=== PATIENT | female | born 1960 | race Caucasian/White ===

== ENCOUNTER 2024-01-24 21:01 | Inpatient (IN) | payer BC, MEDICARE, SELFPAY ==
[2024-01-24] VITALS (13 sets, daily range): BP systolic 135–204; BP diastolic 75–109; BMI 25.2; BMI 26.1
--- NOTE | 2024-01-24 16:46 | ED.GENMED ---
History of Present Illness
General
Chief Complaint: Chest Pain
Source: patient
Time Seen by Provider: 01/24/24 16:25
Travel History
Have you had any contact with someone who has COVID-19?: No
Do you have any symptoms of coronavirus? Fever > 100 degrees, chills, cough, shortness of breath, sore throat, loss of taste or smell, muscle aches, or headache?: No
History of Present Illness
History of Present Illness:
63-year-old female with past medical history of hypertension presenting the emergency department for evaluation of a multitude of symptoms including starting to feel generally unwell this morning having multiple episodes of loose stool and then
watery diarrhea which is since resolved but symptoms then progressed to nausea without any vomiting at home (patient had 1 episode of nonbloody nonbilious emesis while in the waiting room), chest pressure, chills and generalized fatigue. No known
sick contacts, recent travel or recent antibiotics. Patient is unaware of any fevers. Patient states her biggest concern with her chest pain was her significant family history noting parents with cardiac disease as well as sister. Patient states
she has a follow-up with her calculation reviewer already scheduled for Sunday which was already planned as part of her usual 6-month follow-up. She states despite her hypertension here she is readily compliant with her medications. She did have her HCTZ
prescription increase in July due to her hypertension.
Past History
Past History
ED Past Medical History: HTN
ED Past Surgical History: None
Social History
Tobacco: Non-smoker
Alcohol: Occasional
Drug: None
Personal:
Living: with family
Review of Systems
Review of Systems
All Other Systems: ROS reviewed and negative except as documented in HPI and ROS
Phy Exam
Physical Exam
Physical Exam:
GENERAL: Alert , in no apparent distress
Head: Normocephalic atraumatic
EYE: conjunctiva clear
NECK: Supple
ENT: o/p clr, mmm.
CARDIAC: Regular rate and rhythm, no murmur
LUNGS: Clear breath sounds bilaterally, no acute respiratory distress, no wheezes/rales/rhonchi
NEUROLOGICAL: Alert and oriented x 3, moves all extremities, ambulates with steady gait
SKIN: Warm and dry, skin intact.
MUSCULOSKELETAL: well perfused.
PSYCH: Normal and appropriate interaction.
Scores
Heart Failure Risk
Heart Failure Risk Score: Not Applicable
Heart Score for Chest Pain Patients
STEMI patient?: Not applicable
Withdrawal Assessment of Alcohol
Withdrawal Assessment Completed?: Not applicable
Course
Orders/Labs/Results
Orders:
Orders
01/24/24 14:32
EKG [Electrocardiogram (*1)] Urgent
Reason for Study: Chest Pain
EKG- Treatment ONCE
01/24/24 16:42
CT Head W/o Iv Contrast Urgent
Comment:
Reason For Exam: HTN, headache, vomiting
01/24/24 16:52
COVID-19 Antigen Urgent
Source: Nasal Swab
Complete Blood Count/With Diff Urgent
Comprehensive Metabolic Panel Urgent
Troponin I Urgent
Influenza A+B Rapid Molecular Urgent
ADRIANNA Source: Nasal Swab
Specimen Description:
01/24/24 17:50
0.9% Sodium Chloride 500 ml [Nss] 500 ml IV BOLUS
01/24/24 18:44
HydrALAZINE [Apresoline] 10 mg IV NOW STA
01/24/24 19:52
Osmolality, Random Urine Urgent
Serum Osmolality Urgent
Urine Creatinine Urgent
Urine Osmolality 24 Hour [Osmolality, 24 Hour Urine] Urgent
Urine Sodium Urgent
01/24/24 19:53
Urinalysis Reflex To Culture Routine
Abnormal Lab Results
01/24/24
16:52
RBC 3.69 L 10^6/uL
(4.20-5.40)
Hgb 11.6 L g/dL
(12.0-16.0)
Hct 31.5 L %
(37.0-47.0)
MCH 31.4 H pg
(27.0-31.0)
MPV 11.3 H fL
(7.4-10.4)
Lymphocytes % 16.4 L %
(20.5-51.1)
Sodium 123 L mmol/L
(135-145)
Chloride 94 L mmol/L
(98-107)
Carbon Dioxide 21 L mmol/L
(22-30)
BUN 21 H mg/dl
(7-17)
Glucose 113 H mg/dl
(70-99)
01/24/24 16:52
01/24/24 16:52
Vital Signs
Initial and Last Documented VS:
Initial Vital Signs
Temp Pulse Resp BP Pulse Ox
99.1 F 65 16 204/108 100
01/24/24 14:36 01/24/24 14:36 01/24/24 14:36 01/24/24 14:36 01/24/24 14:36
Last Documented Vital Signs
Temp Pulse Resp BP Pulse Ox
99.1 F 71 11 161/80 98
01/24/24 14:36 01/24/24 19:37 01/24/24 19:37 01/24/24 19:36 01/24/24 19:37
MDM/Problems Addressed
Differential Diagnosis Includes:
GERD/gastritis/gastroenteritis or other GI pathology mimicking chest pain, atypical ACS, hypertensive urgency/emergency, viral syndrome
MDM/Problems Addressed:
63-year-old female presenting the emergency department for evaluation of a multitude of symptoms, biggest concern was chest pain that developed prior to arrival but notes now is resolved. Patient found to be significantly hypertensive here. During
my exam this was repeated and her blood pressure is improved to 185/80. Patient states presently her only symptom is a mild frontal headache. Given her headache combined with the vomiting and elevated blood pressure will obtain a head CT. EKG
done in triage is nonischemic. Will check a 3-hour troponin. Continue to monitor blood pressure. Disposition pending.
Chronic conditions affecting care: HTN
Acute Exacerbation and/or Progression of Chronic Illness: HTN
*Radiology
Radiology exam reviewed: radiology read reviewed
*Pulse Oximetry
Patient hypoxic: no
*EKG
Interpreted by ED Provider?: Yes
Comparison EKG: no comparison EKG present
Heart Rate: 63
Rate: normal
Rhythm: sinus
Ischemia: no ischemia
*Neurosurgical Nurse Practitioner Interpretation
Rate: normal
Rhythm: sinus
*Critical Care Note
Total Time (30-74mins, 75-104mins- exclusive of procedures): Not Applicable
Patient Management
Discussion with other providers: Hospitalist
Escalation/DeEscalation of care consider admission/obs:
Patient CT scan without any evidence for acute pathology. Unfortunately on multiple rechecks of her blood pressure it was noted to be greater than 180/100. We did give a dose of hydralazine to help out with patient's hypertension. She has a
multitude of symptoms which could be potentially related to a hypertensive urgency but she also has a sodium level of 123. Will admit for sodium repletion as well as monitoring. Patient will require continuous monitoring of her blood pressure as
well. Hospitalist is aware and accepts for continued evaluation and treatment.
ED Attending Note
-
Portions of this chart may have been created with voice recognition software.� Occasional wrong word or��sound alike� substitutions may have occurred due to the inherent limitations of voice recognition software.
Discharge Plan
Departure
Patient Disposition: Admit
Date of Disposition: 01/24/24
Time of Disposition: 19:33
Presentation/result/management discussed w/ accepting MD/DO: Hospitalist
Discharge Problem:
Acute hyponatremia, Hypertensive urgency
Prescriptions:
No Action
enalapril maleate 20 mg tablet
20 mg PO BID
hydrochlorothiazide 25 mg tablet
25 mg PO DAILY
rosuvastatin 20 mg tablet
20 mg PO Q48H
rosuvastatin 20 mg tablet
40 mg PO Q48H
fenofibrate nanocrystallized 48 mg tablet
48 mg PO QPM
Referrals:
Jaleesa Levy MD [Family Provider] -
Interventions
Interventions:
*Risk Screen - Suicide Last Done: 01/24/24 14:36
*Neglect/Abuse Screening Last Done: 01/24/24 14:36
ED- Fall Risk Assessment Last Done: 01/24/24 16:50
*ED COVID-19 Vaccine History Last Done: 01/24/24 14:36
ED- Cardiac Assessment Last Done: 01/24/24 16:50
Discharge Date and Time
Print Language: PARAGUAYAN
[2024-01-24 17:11] LABS: % Basophils 0.4 % (0-2); % Immature Granulocytes 0.3 % (0-0.5); % Lymphocytes 16.4 % (20.5-51.1); % Monocytes 7.2 % (1.7-9.3); % Neutrophils 72.7 % (42.2-75.2); Absolute Eosinophils 0.2 10^3/uL (0-0.7); Absolute Lymphocytes 1.3 10^3/uL (1.2-3.4); Absolute Monocytes 0.6 10^3/uL (0.1-0.6); Absolute Neutrophils 5.8 10^3/uL (1.4-6.5); Hematocrit 31.5 % (37.0-47.0); Hemoglobin 11.6 g/dL (12.0-16.0); Mean Corp Hgb Conc. 36.8 g/dL (33.0-37.0); Mean Corpuscular Hgb 31.4 pg (27.0-31.0); Mean Corpuscular Volume 85.4 fL (81.0-99.0); Mean Platelet Volume 11.3 fL (7.4-10.4); Nucleated Red Blood Cells % 0 %; Platelet Count 197 10^3/uL (130-400); Red Blood Cell Count 3.69 10^6/uL (4.20-5.40); Red Cell Dist. Width 12.2 % (11.5-14.5)
[2024-01-24 17:17] LABS: COVID-19 Antigen Negative (Negative)
[2024-01-24 17:25] LABS: ALT (SGPT) 27 U/L (0-35); AST (SGOT) 34 U/L (14-36); Albumin 4.5 g/dl (3.5-5.0); Alkaline Phosphatase 51 U/L (38-126); Blood Urea Nitrogen 21 mg/dl (7-17); Calcium 10.1 mg/dl (8.4-10.2); Carbon Dioxide 21 mmol/L (22-30); Chloride 94 mmol/L (98-107); Estimated Creatinine Clearance 77 ml/min; Glucose 113 mg/dl (70-99); Sodium 123 mmol/L (135-145); Total Bilirubin 0.9 mg/dl (0.2-1.3); Total Protein 6.9 g/dl (6.3-8.2); eGFR > 60.00
[2024-01-24 17:35] LABS: Troponin I < 0.012 ng/ml
[2024-01-24] MEDS: NSS 500 IV (17:55)
[2024-01-24] MEDS: APRESOLINE 10 MG IV (18:51)
--- NOTE | 2024-01-24 19:38 | HPS.HSE ---
Family Physician
-
Family Physician: Jaleesa Levy MD
Chief Complaint
-
elevated blood pressure
History of Present Illness
63-year-old female with past medical history of hypertension, hyperlipidemia presented to us with multiple episodes of diarrhea associated with epigastric pain. she vomited once. patient fasted all night, had blood work done this morning. she
complained of epigastric pain associated with mid sternum pain. at present all the symptoms resolved. No known sick contacts, recent travel or recent antibiotics. patient stated chills. patient also complained of [place], her her blood pressure was in
the 200s over 100s at home. Her HCTZ was increased from 12.5 to 25 last July. Since then her blood work was fine. Denies dysuria, hematuria.
On arrival patient was hypertensive patient received a dose of hydralazine. Normal saline x 1 bag in the ER. Admitting for further management
Medical History
Past Medical History
Past Medical History: Reports Other
Additional Past Medical History:
Hypertension
Hyperlipidemia
Past Surgical History: Reports Other
Additional Past Surgical History:
Left rotator cuff repair
Social History
Tobacco: Former Smoker
Alcohol: Occasional
Drug: None
Family History
Family History: Not pertinent
Allergies / Home Medications
Allergies reflects when Allergies were last updated in [facility] [employer].
Home Medications with original date entered in [facility] [employer]
Allergy/Medication List:
Allergies
Allergy/AdvReac Type Severity Reaction Status Date / Time
No Known Allergies Allergy Unverified 01/24/24 14:36
Home Medications
aspirin 81 mg tablet,delayed release 81 mg PO HS 01/24/24
carvedilol 12.5 mg tablet 12.5 mg PO BID 01/24/24
cetirizine 10 mg tablet (Zyrtec) 10 mg PO HS 01/24/24
enalapril maleate 20 mg tablet 20 mg PO BID 01/24/24
fenofibrate nanocrystallized 48 mg tablet 48 mg PO DAILY 01/24/24
hydrochlorothiazide 25 mg tablet 25 mg PO DAILY 01/24/24
rosuvastatin 20 mg tablet 20 mg PO Q48H@219901/24/24
rosuvastatin 20 mg tablet 40 mg PO Q48H@219901/24/24
Review of Systems
-
Constitutional: Reports No Symptoms
EENT: Reports No Symptoms
Respiratory: Reports No Symptoms
Cardiac: Reports Chest Pain
Abdomen/GI: Reports Abdominal Pain, Nausea, Vomiting and Diarrhea
: Reports No Symptoms
Musculoskeletal: Reports No Symptoms
Skin: Reports No Symptoms
Neurological: Reports Headache
Endocrine: Reports No Symptoms
Hematologic/Lymphatic: Reports No Symptoms
Psych: Reports No Symptoms
Physical Exam
Vital Signs
Vital Signs
Temp Pulse Resp BP Pulse Ox
99.1 F 65 15 188/101 97
01/24/24 14:36 01/24/24 18:51 01/24/24 17:30 01/24/24 18:51 01/24/24 17:30
Physical Exam
General: Well Developed, Well Nourished and No Apparent Distress
HEENT: NormoCephalic, Moist mucous membranes and Atraumatic
Respiratory: Clear
Cardiac: S1/S2 and Regular Rhythm; No Murmur or Rub
GI: Soft, Non Tender, Non Distended and Normal Bowel Sounds; No Organomegaly
Rectal: Deferred by Provider
Musculoskeletal: No Clubbing, No Cyanosis and No Edema
Skin: No Rash
Neuro: AO x 3 and Nonfocal/grossly intact
Psych: Calm
Laboratory Results
-
01/24/24 16:52
01/24/24 16:52
Laboratory Results
Total Bilirubin 0.9 mg/dl (0.2-1.3) 01/24/24 16:52
AST 34 U/L (14-36) 01/24/24 16:52
ALT 27 U/L (0-35) 01/24/24 16:52
Alkaline Phosphatase 51 U/L (38-126) 01/24/24 16:52
Troponin I < 0.012 ng/ml 01/24/24 16:52
Data Reviewed
-
CT Scan: Report Reviewed by me
Lab Data: Labs Reviewed by me
Impression/Plan
-
# Hypertension urgency
-Pressure 200s over 100
-Received IV hydralazine
-Continue IV hydralazine as needed
-Head CT normal
-EKG with normal sinus rhythm
-Coreg, enalapril continued
-Hold HCTZ
# Acute hyponatremia unclear cause
-Obtain urine sodium, osmolality, serum osmolality
-Received normal saline x 1 back in the ER
-Repeat BMP at midnight and in the morning
-Nephrology consult
#diarrhea/vomiting/epigastric pain likely viral symptoms
-will obtain norovirus
-if continued to have diarrhea, consider stool studies.
# Hyperlipidemia
-Fenofibrate and statin continued
# DVT prophylaxis
-Heparin subcu
# CODE STATUS
-Full code
--- NOTE | 2024-01-24 20:15 | W.PN.UPDATE ---
Addendum entered and electronically signed by Bridger Horton MD 01/24/24 20:33:
Per patient
Na 141 in Oct 2023
Original Note:
Update Note
Progress Note Update
This note serves as an addendum to the H&P by certified ski patroller name: Chloe Lynch on date 01/24/24
HPI
63F No prior admission to HX HTN seen at ER for evalaution:
She was fasting since last night for blood work . has Safety And Security Officer appointment at [facility] on coming Sunday
GI:
Many episodes of loose stool followed by non bloody watery dirrea. Spontaneusly resolved.
Residual nausea and one episodes of non billous vomiting at ER
Asso. with generalized weakness and fatigue.
Denied abdominal pain
No known sick contacts
No recent travel
No recent ABx.
[facility]: no CP now
PHX
P HTN
HLD
Reviewed VS: BP: 205/108-->160/80 HR: 70s RR: 11 POx 98 on RA T 99.1
PE
Gen: anxious , not toxic looking
HEENT: flushed face , dry tongue and dry OM
Neck: supple
Lungs: CTA
Cor: RRR S1 S2
Abdomen: soft and benign exam
COUNTER WEIGHER: AAO3, NFND
MS: no edema
Psych: anxious
Data
nl WCC
Hgb 11.6
Na 123
K 4
Cl 94
CO2 21
BUN 21
nl Cr nl eGFR
BG 113
NEG TPNI
NEG Covid
NEG Flu A & B
Pending labs: Ur Na, Ur Osm, Sr Osm, TSH
EKG report
NORMAL SINUS RHYTHM
NORMAL ECG
NO PREVIOUS ECGS AVAILABLE
Prelim HCT: unremarkable
No prior admission to [facility]
ASSESSMENT & PLAN
Pending Rx reconciliation
Acute diarrheal illness ; suspect viral origin
No known sick contacts. No recent travel. No recent ABx.
- check Noro virus
- stool for Cx
- IV NS
- No anti diarrheal agent for now
HTN urgency - improved s/p IV hydralazine
HX Primary HTN
- add IV Hydralazine PRN for SBP > 165, DBP >110
- cont. GRAVITY FLOW IRRIGATOR Enlarpril , carvedilol as PO tolerance
- Held HCTZ due to acute hyponatremia
Presumed acute hyponatremia precipitated by acute diarrheal loss & underlying HCTZ
Suspect hypovolemia
- Held HCTZ
- s/p NS 500 cc bolus at ER then repeat Na in 4hrs
- Then Na q4h
- rate of Na correction : not more than 6 mEq over 12 hrs
- Pending labs: Ur Na, Ur Osm, Sr Osm
- Renal consult
Currently CP free : Recent HX CP
NEG TPNI, Nl EKG
- Safety And Security Officer appointment at [facility] on coming Sunday
Urinary frequency without dysuria
low grade fever
- check UA
DVT Px: LMWH
Code: Full code
IP MS
[2024-01-24] MEDS: TYLENOL 650 MG PO (20:32)
[2024-01-24 20:40] LABS: Osmolality Urine 181 mOsm/kg (300-900)
[2024-01-24 20:49] LABS: Urine Sodium 51 mmol/L (30-90)
[2024-01-24 20:51] LABS: Osmolality Serum 271 mOsm/kg (275-300)
[2024-01-24] MEDS: CRESTOR 20 MG PO (22:28)
[2024-01-24] MEDS: ASPIR LOW (ENTERIC COATED) 81 MG PO (22:28)
[2024-01-24] MEDS: ZYRTEC 10 MG PO (22:29)
[2024-01-25 01:09] LABS: Blood Urea Nitrogen 16 mg/dl (7-17); Calcium 9.9 mg/dl (8.4-10.2); Carbon Dioxide 26 mmol/L (22-30); Chloride 98 mmol/L (98-107); Estimated Creatinine Clearance 66 ml/min; Glucose 121 mg/dl (70-99); Potassium 3.2 mmol/L (3.5-5.1); Sodium 129 mmol/L (135-145); eGFR > 60.00
--- NOTE | 2024-01-25 02:55 | W.PN.UPDATE ---
Update Note
Progress Note Update
Laboratory Tests
01/24/24 01/25/24 01/25/24
16:52 00:38 06:00
Sodium 123 L 129 L Pending
--- NOTE | 2024-01-25 03:40 | PTCARENOTE ---
late entry 2215, patient admitted to [facility]-, admission assessment complete. Patient oriented to room and floor routines. Instr commissioning editor plunkett. Poc reviewed with patient, patient inst on need for stool sample, hat placed in toilet. VSS
[2024-01-25 04:08] LABS: Hemoglobin 11.6 g/dL (12.0-16.0); Mean Corp Hgb Conc. 36.3 g/dL (33.0-37.0); Mean Corpuscular Hgb 30.9 pg (27.0-31.0); Mean Corpuscular Volume 85.1 fL (81.0-99.0); Mean Platelet Volume 11.2 fL (7.4-10.4); Platelet Count 189 10^3/uL (130-400); Red Blood Cell Count 3.76 10^6/uL (4.20-5.40); Red Cell Dist. Width 12.2 % (11.5-14.5); White Blood Cell Count 6.7 10^3/uL (4.8-10.8)
[2024-01-25 04:30] LABS: Blood Urea Nitrogen 16 mg/dl (7-17); Calcium 9.8 mg/dl (8.4-10.2); Carbon Dioxide 25 mmol/L (22-30); Chloride 98 mmol/L (98-107); Estimated Creatinine Clearance 77 ml/min; Glucose 99 mg/dl (70-99); Potassium 3.3 mmol/L (3.5-5.1); Sodium 133 mmol/L (135-145); eGFR > 60.00
[2024-01-25 07:33] VITALS: BP 139/81
[2024-01-25 07:53] LABS: Urine Albumin Negative (Neg - Trace); Urine Bilirubin Negative (Negative); Urine Character Clear (Clear); Urine Color Straw; Urine Glucose Negative (Negative); Urine Ketone Negative (Negative); Urine Leukocyte Negative (Negative); Urine Nitrite Negative (Negative); Urine Occult Blood Negative (Negative); Urine Specific Gravity 1.005 (<1.030); Urine Urobilinogen Negative (Neg - 1+)
[2024-01-25] MEDS: KCL 40 MEQ PO (08:20)
[2024-01-25] MEDS: COREG 12.5 MG PO ×2 (08:20→19:50)
[2024-01-25] MEDS: TRICOR 48 MG PO (08:21)
[2024-01-25] MEDS: VASOTEC 20 MG PO ×2 (08:21→19:50)
[2024-01-25] MEDS: HEPARIN 5000 UNITS SC (08:22)
--- NOTE | 2024-01-25 10:47 | CM ---
Met with patient at bedside; initial assessment completed
Pharmacy verified: [facility], [place]
Patient reported that she lives in a multilevel home; her 32 year old son lives with her; 1 step to enter; 11-12 steps to 2n floor bathroom; bath has a shower stall; powder room on the 1st floor
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
Sees a Cigarette Stamper and has a BP cuff to check her BP at home
Transportation: Sister will provide ride home
SNF/Rehab/Home Health utilization history: past outpatient rehab after shoulder surgery; no SNF or Home Care
Signed IMM on the chart
Plan: discharge to home without services
--- NOTE | 2024-01-25 14:44 | W.PN.HOSP.TC ---
Today's Communication/Plan
-
Monitor vital signs
Monitor for signs and symptoms of severely high blood pressure
Monitor BMP
Appreciate Nephrology
Assessment / Plan
Assessment / Plan
Physical Exam
Gen: Not in acute distress. Conversant.
HEENT: Normocephalic
Neck: Supple
Lungs: Clear to Auscultation Bilaterally
Cardio: RRR. S1 and S2 present.
Abdomen: Soft and Nontender. Positive bowel sounds.
Extremities: No cyanosis. No edema.
Neuro: AAOx3.
Psych: Anxious
Assessment/Plan
Presumed acute hyponatremia precipitated by acute diarrheal loss & underlying HCTZ
Suspect hypovolemia in setting of recent nausea, vomiting
- Continue to hold HCTZ
- PO Fluid Restriction
- Status post intravenous fluids
- Nephrology consulted, recommendations appreciated
Acute diarrheal illness - RESOLVED AFTER JANUARY 24, 2024
No known sick contacts. No recent travel. No recent ABx.
- Patient had recently returned from [place]
- At least some of the symptoms could also have been from severe hypertension
- Patient not having any symptoms at this time
- Observe closely
Hypertensive urgency - improved s/p IV hydralazine
History of Hypertension
- Continue prn IV Hydralazine PRN for SBP > 165, DBP >110
- Cont. BULL GANG WORKER Enalapril, carvedilol as PO tolerance
- Held HCTZ due to acute hyponatremia -- will likely discontinue HCTZ indefinitely
- Will add Amlodipine for better blood pressure control
- Monitor blood pressure
- Patient needs to follow-up closely with her outpatient physicians/lawn care technician
Recent History of Chest pain
- Operations Associate appointment at [facility] on coming Sunday
Urinary frequency without dysuria
- UA not suggestive of UTI
DVT PPx: Heparin subq
Code: Full code
Anticipated Discharge: Within 24 hours
Subjective/Interval History
-
Date of Service: January 25, 2024
Patient was seen and examined. She mentioned that the diarrhea and vomiting she had yesterday have all resolved. She reported no new symptoms or new significant complaints.
Objective Data
-
Labs:
Laboratory Results
01/25/24 01/25/24
04:00 04:00
WBC 6.7
Hgb 11.6 L
Hct 32.0 L
Plt Count 189
Sodium 133 L Cancelled
Potassium 3.3 L
Chloride 98
Carbon Dioxide 25
BUN 16
Creatinine 0.6
Glucose 99
Calcium 9.8
Vital Signs:
Vital Signs
Temp Pulse Resp BP Pulse Ox
98.1 F 64 16 139/81 98
01/25/24 07:33 01/25/24 08:20 01/25/24 07:33 01/25/24 08:20 01/25/24 09:56
[2024-01-25 15:00] VITALS: BP 127/74
[2024-01-25 15:26] LABS: Magnesium 1.7 mg/dl (1.6-2.3)
--- NOTE | 2024-01-25 15:42 | W.CON.NEPH ---
Consultation
-
Date/Time Consultation Requested: January 25, 2024 9 AM
Date/Time Consultation Performed: January 25, 2024 3 PM
Requesting Provider: Dr Kim
Performing Provider: Dr. Armendariz
Reason for Consultation: Hyponatremia
Medical History
-
Chief Complaint: Hyponatremia
History of Present Illness:
This is a 63-year-old female with known hypertension on a multidrug regimen which is managed by her spark tester at [facility]. She also has hyperlipidemia controlled on statin therapy. She had developed significant diarrhea with epigastric pain and some
vomiting. As a result she also had epigastric and midsternal pain. She comes the emergency room and she was noted to have hypertension as well. Her sodium level was low at 123. She was given saline with improvement of her sodium level now up to
133. Her potassium has remained low. We are asked to assist with management of her electrolytes.
Past Medical History
Hypertension, hyperlipidemia, left rotator cuff repair
Social History
Tobacco: Former Smoker
Alcohol: Occasional
Family History
Family History: Not Pertinent
Allergies / Home Medications
Allergy/AdvReac Type Severity Reaction Status Date / Time
No Known Allergies Allergy Unverified 01/24/24 14:36
�Medication �Instructions �Recorded �Confirmed �Type
aspirin 81 mg tablet,delayed 81 mg PO HS Blood Clot 01/24/24 01/24/24 History
release Prevention/Tx
carvedilol 12.5 mg tablet 12.5 mg PO BID Heart 01/24/24 01/24/24 History
Disease/Condition
cetirizine 10 mg tablet (Zyrtec) 10 mg PO HS Allergies 01/24/24 01/24/24 History
enalapril maleate 20 mg tablet 20 mg PO BID Blood Pressure 01/24/24 01/24/24 History
fenofibrate nanocrystallized 48 mg 48 mg PO DAILY High Cholesterol 01/24/24 01/24/24 History
tablet
hydrochlorothiazide 25 mg tablet 25 mg PO DAILY Blood Clot 01/24/24 01/24/24 History
Prevention/Tx
rosuvastatin 20 mg tablet 20 mg PO Q48H@2200 High Cholesterol 01/24/24 01/24/24 History
rosuvastatin 20 mg tablet 40 mg PO Q48H@2200 High Cholesterol 01/24/24 01/24/24 History
Review of Systems
-
No chest pain or shortness of breath currently. No edema. Appetite is good. No nausea or vomiting. Diarrhea has resolved. The remainder of the complete review of systems was negative
Physical Exam
Vital Signs
Vital Signs
Temp Pulse Resp BP Pulse Ox
98.1 F 64 16 139/81 98
01/25/24 07:33 01/25/24 08:20 01/25/24 07:33 01/25/24 08:20 01/25/24 09:56
Lab Results
WBC 6.7 10^3/uL (4.8-10.8) 01/25/24 04:00
RBC 3.76 10^6/uL (4.20-5.40) L 01/25/24 04:00
Hgb 11.6 g/dL (12.0-16.0) L 01/25/24 04:00
Hct 32.0 % (37.0-47.0) L 01/25/24 04:00
Plt Count 189 10^3/uL (130-400) 01/25/24 04:00
eGFR > 60.00 01/25/24 04:00
Albumin 4.5 g/dl (3.5-5.0) 01/24/24 16:52
Physical Exam
General: AOx3
HEENT: PERRL, EOMI, Ear/Nose Intact, Hearing Normal, Oropharynx Clear/Moist, Neck Supple, Trachea Midline and No Thyromegaly
Respiratory: Clear
Cardiac: Regular Rate/Rhythm and No Edema
Abdomen: Soft, Nontender, Nondistended, Normal Bowel Sounds and No Hepatosplenomegaly
Skin: No Rash and Normal Turgor
Psych: Mood/afflect pleasant and Insight/judgement good
Assessment/Plan
-
Assessment:
Hypertension
Hyperlipidemia
Diarrhea
Hyponatremia
Hypokalemia
Plan:
Her low urine osmolality would suggest an extrarenal cause and not an ADH issue.
Volume alone has corrected the hyponatremia. This was an acute incident and the rate of correction is not concerning
Her hydrochlorothiazide will be switched to amlodipine as it may have only exacerbated her potassium losses.
Additional potassium will be repleted
Follow-up basic metabolic panel
[2024-01-25 15:52] LABS: Blood Urea Nitrogen 18 mg/dl (7-17); Calcium 10.1 mg/dl (8.4-10.2); Carbon Dioxide 26 mmol/L (22-30); Chloride 103 mmol/L (98-107); Estimated Creatinine Clearance 58 ml/min; Glucose 133 mg/dl (70-99); Potassium 4.1 mmol/L (3.5-5.1); Sodium 134 mmol/L (135-145); eGFR > 60.00
[2024-01-25 16:13] LABS: Magnesium 1.8 mg/dl (1.6-2.3)
[2024-01-25] MEDS: NORVASC 2.5 MG PO (16:16)
[2024-01-25] MEDS: HEPARIN SC ×2 (19:50→19:57)
[2024-01-25] MEDS: CRESTOR 40 MG PO (21:11)
[2024-01-25] MEDS: ASPIR LOW (ENTERIC COATED) 81 MG PO (21:11)
[2024-01-25] MEDS: ZYRTEC 10 MG PO (21:11)
[2024-01-25] MEDS: KCL 20 MEQ PO (21:11)
[2024-01-25 23:25] VITALS: BP 127/76
[2024-01-26 07:30] VITALS: BP 142/84
[2024-01-26 09:08] LABS: Hematocrit 35.8 % (37.0-47.0); Hemoglobin 12.4 g/dL (12.0-16.0); Mean Corp Hgb Conc. 34.6 g/dL (33.0-37.0); Mean Corpuscular Hgb 31.1 pg (27.0-31.0); Mean Corpuscular Volume 89.7 fL (81.0-99.0); Mean Platelet Volume 11.5 fL (7.4-10.4); Platelet Count 196 10^3/uL (130-400); Red Blood Cell Count 3.99 10^6/uL (4.20-5.40); Red Cell Dist. Width 12.9 % (11.5-14.5); White Blood Cell Count 6.3 10^3/uL (4.8-10.8)
[2024-01-26 09:26] LABS: Blood Urea Nitrogen 20 mg/dl (7-17); Carbon Dioxide 23 mmol/L (22-30); Chloride 103 mmol/L (98-107); Estimated Creatinine Clearance 77 ml/min; Glucose 118 mg/dl (70-99); Potassium 4.3 mmol/L (3.5-5.1); Sodium 135 mmol/L (135-145); eGFR > 60.00
[2024-01-26] MEDS: COREG 12.5 MG PO (09:34)
[2024-01-26] MEDS: HEPARIN 5000 UNITS SC (09:34)
[2024-01-26] MEDS: TRICOR 48 MG PO (09:34)
[2024-01-26] MEDS: VASOTEC 20 MG PO (09:35)
[2024-01-26] MEDS: NORVASC 2.5 MG PO (09:35)
--- NOTE | 2024-01-26 11:06 | W.PN.NEPH.PH ---
Today's Communication / Plan
-
dc planning
Assessment/Plan
-
Assessment:
Hypertension
Hyperlipidemia
Diarrhea
Hyponatremia
Hypokalemia
Plan:
amlodipine instead of HCTZ
f/u labs next week
no FR needed
-
-
Date of Service: January 26, 2024
CC / HPI / ROS
-
Chief Complaint:
hyponatremia
History of Present Illness:
Na up to 135
K normal
BP stable
Review of Systems:
no CP/SOB
Labs
-
Labs:
WBC 6.3 10^3/uL (4.8-10.8) 01/26/24 08:34
RBC 3.99 10^6/uL (4.20-5.40) L 01/26/24 08:34
Hgb 12.4 g/dL (12.0-16.0) 01/26/24 08:34
Hct 35.8 % (37.0-47.0) L 01/26/24 08:34
Plt Count 196 10^3/uL (130-400) 01/26/24 08:34
Sodium 135 mmol/L (135-145) 01/26/24 08:34
Potassium 4.3 mmol/L (3.5-5.1) 01/26/24 08:34
Chloride 103 mmol/L (98-107) 01/26/24 08:34
Carbon Dioxide 23 mmol/L (22-30) 01/26/24 08:34
BUN 20 mg/dl (7-17) H 01/26/24 08:34
Creatinine 0.6 mg/dL (0.6-1.0) 01/26/24 08:34
eGFR > 60.00 01/26/24 08:34
Glucose 118 mg/dl (70-99) H 01/26/24 08:34
Calcium 10.0 mg/dl (8.4-10.2) 01/26/24 08:34
Albumin 4.5 g/dl (3.5-5.0) 01/24/24 16:52
Physical Exam
-
Vital Signs:
Vital Signs
Temp Pulse Resp BP Pulse Ox
97.1 F 58 16 142/84 98
01/26/24 07:30 01/26/24 07:30 01/26/24 07:30 01/26/24 07:30 01/26/24 07:30
Cardiovascular:: Regular rate and rhythm
Respiratory:: Bilateral: CTA
Lung Excursion:: Normal
Abdomen:: Nontender and Soft
Bowel Sounds:: Normal
Extremity Edema:: None: Bilateral:
--- NOTE | 2024-01-26 12:40 | W.PN.HOSP.TC ---
Today's Communication/Plan
-
Discharge today
Assessment / Plan
Assessment / Plan
Physical Exam
Gen: Not in acute distress. Conversant.
HEENT: Normocephalic
Neck: Supple
Lungs: Clear to Auscultation Bilaterally
Cardio: RRR. S1 and S2 present.
Abdomen: Soft and Nontender. Positive bowel sounds.
Extremities: No cyanosis. No edema.
Neuro: AAOx3. Neurologic exam -- grossly intact throughout.
Psych: Calm
Assessment/Plan
Presumed acute hyponatremia precipitated by acute diarrheal loss & underlying HCTZ
Suspect hypovolemia in setting of recent nausea, vomiting
- Stop HCTZ
- No PO Fluid Restriction needed
- Status post intravenous fluids
- Nephrology consulted, recommendations appreciated
Acute diarrheal illness - RESOLVED AFTER JANUARY 24, 2024
No known sick contacts. No recent travel. No recent ABx.
- Patient had recently returned from [place]
- At least some of the symptoms could also have been from severe hypertension
- Patient not having any symptoms at this time
Hypertensive urgency - RESOLVED
History of Hypertension
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
- Held HCTZ due to acute hyponatremia -- will likely discontinue HCTZ indefinitely
- Continue Amlodipine
- Monitor blood pressure
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
Recent History of Chest pain
- Tile Fitter appointment at [facility] on coming Sunday
Urinary frequency without dysuria
- UA not suggestive of UTI
DVT PPx: Heparin subq
Code: Full code
More than 30 minutes spent in discharge including
Final examination of the patient
Summarizing hospital stay
Instructions for continuing care to all relevant caregivers
Preparation of discharge records, prescriptions, and referral forms
Total time spent (in minutes): 33
Anticipated Discharge: Today
Subjective/Interval History
-
Date of Service: January 26, 2024
Patient was seen and examined. She had a normal bowel movement earlier, denied any new symptoms or complaints, and also denied any abdominal pain, nausea or vomiting.
Objective Data
-
Labs:
Laboratory Results
01/26/24
08:34
WBC 6.3
Hgb 12.4
Hct 35.8 L
Plt Count 196
Sodium 135
Potassium 4.3
Chloride 103
Carbon Dioxide 23
BUN 20 H
Creatinine 0.6
Glucose 118 H
Calcium 10.0
Vital Signs:
Vital Signs
Temp Pulse Resp BP Pulse Ox
97.1 F 58 16 142/84 98
01/26/24 07:30 01/26/24 07:30 01/26/24 07:30 01/26/24 07:30 01/26/24 07:30
I&O
01/25/24 01/26/24 01/27/24
06:59 06:59 06:59
Intake Total 1979
Balance 1979
--- NOTE | 2024-01-26 13:06 | W.DS.TRANS ---
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
-
Discharge Instructions:
Discharge Diagnosis/Procedures Hyponatremia
Acute diarrheal illness - RESOLVED AFTER DECEMBER
2023
Hypertensive urgency - RESOLVED
History of Hypertension
Recent History of Chest pain
Urinary frequency without dysuria
Diet As tolerated,Low Fat,Low Cholesterol
Activity As tolerated
Blood Work Repeat BMP within 1 week
Instructions:
Stand-Alone Forms:
Changes to Home Medications: Yes
Discharge Medications:
DC Medications w/original date entered in [facility]
aspirin 81 mg tablet,delayed release 81 mg PO HS Blood Clot Prevention/Tx 01/24/24
carvedilol 12.5 mg tablet 12.5 mg PO BID Heart Disease/Condition 01/24/24
cetirizine 10 mg tablet (Zyrtec) 10 mg PO HS Allergies 01/24/24
enalapril maleate 20 mg tablet 20 mg PO BID Blood Pressure 01/24/24
fenofibrate nanocrystallized 48 mg tablet 48 mg PO DAILY High Cholesterol 01/24/24
rosuvastatin 20 mg tablet 20 mg PO Q48H@2200 High Cholesterol 01/24/24
rosuvastatin 20 mg tablet 40 mg PO Q48H@2200 High Cholesterol 01/24/24
amlodipine 2.5 mg tablet 2.5 mg PO DAILY #30 tabs 01/26/24
Home Medication Changes
Amlodipine is a new medication.
Hydrochlorothiazide stopped.
Pending Results: No
Total time spent discharging patient (in min): 33
--- NOTE | 2024-01-26 14:23 | CM ---
For d/c today
Has ride to home
Plan - d/c to home no needs
--- NOTE | 2024-01-28 08:26 | W.DCSUMMARY ---
Discharge Summary
Discharge Data
Date of Admission: 01/24/24
Date of Discharge: 01/26/24
Total time spent discharging patient (in min): 33
-
Pending Results: No
Hospital Course
63 y/o female who presented with after experiencing nausea, diarrhea and abdominal pain at home, which started on the morning of presentation. Patient had fasted for labwork to be done earlier on the day of presentation. Patient had hypertensive
urgency, for which intravenous Hydralazine was given. Patient's hydrochlorothiazide was stopped due to hyponatremia, and the hydrochlorothiazide was replaced with amlodipine for blood pressure control. Her sodium improved with intravenous fluids.
Her blood pressure readings were acceptable. 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
Discharge Plan
-
Patient Disposition: Home (Routine Discharge)
Discharge Diagnosis/Procedures: Hyponatremia
Acute diarrheal illness - RESOLVED AFTER JANUARY 24, 2024
Hypertensive urgency - RESOLVED
History of Hypertension
Recent History of Chest pain
Urinary frequency without dysuria
Condition: Good
Diet: As tolerated, Low Fat and Low Cholesterol
Activity: As tolerated
Blood Work: Repeat BMP within 1 week
Referrals:
Jaleesa Levy MD [Family Provider] - in less than 1 week
Additional Discharge Medication Instructions: Amlodipine is a new medication.
Hydrochlorothiazide stopped.
Prescriptions:
New
amlodipine 2.5 mg Tablet
2.5 mg PO DAILY Qty: 30 1RF
Continued
enalapril maleate 20 mg tablet
20 mg PO BID
rosuvastatin 20 mg tablet
20 mg PO Q48H@2200
rosuvastatin 20 mg tablet
40 mg PO Q48H@2200
fenofibrate nanocrystallized 48 mg tablet
48 mg PO DAILY
carvedilol 12.5 mg tablet
12.5 mg PO BID
cetirizine [Zyrtec] 10 mg Tablet
10 mg PO HS
aspirin 81 mg Tablet,Delayed Release (Dr/Ec)
81 mg PO HS
Discontinued
hydrochlorothiazide 25 mg tablet
25 mg PO DAILY
Discharge Orders:
Discharge Patient (As Directed); Ordered 01/26/24
Ordered By: Wyatt Boyce
Discharge Date and Time
Discharge Date/Time: 01/26/24 15:30
Print Language: FRENCH
== END 2024-01-26 15:30 | disposition home or self-care (01) | DRG 641 ==
LOC: 3 WEST ACU 21:01
PROVIDERS: Physician Assistant Medical; Registered Nurse; ADMITTING PHYSICIAN Internal Medicine; ATTENDING PHYSICIAN Hospitalist; EMERGENCY PHYSICIAN Emergency Medicine; FAMILY PHYSICIAN Internal Medicine; OTHER PHYSICIAN Specialist
DX: E87.1 Hypo-osmolality and hyponatremia (principal); I10 Essential (primary) hypertension; I16.0 Hypertensive urgency; E78.00 Pure hypercholesterolemia, unspecified; R35.0 Frequency of micturition; R19.7 Diarrhea, unspecified; E86.1 Hypovolemia; E87.6 Hypokalemia; Z87.891 Personal history of nicotine dependence; Z79.82 Long term (current) use of aspirin; Z11.52 Encounter for screening for COVID-19
CPT/HCPCS: 70450; 80048; 80053; 81003; 82570; 83735; 83930; 83935; 84300; 84484; 85025; 85027; 87045; 87046; 87086; 87427; 87502; 87798; 87811; 93005; 96361; 96374; 99285